=== PATIENT | male | born 1935 | race Asian ===

== ENCOUNTER 2021-01-11 09:14 | Emergency (ER) | payer OTHER ==
[2021-01-11 09:29] VITALS: TEMP 100.3; BMI 55.7
[2021-01-11] MEDS ORDERED: VANCOMYCIN 1 GM in D5W (PRE-DOCKED) 1,000 MG/250 ML IVPB ONE (10:02)
[2021-01-11] MEDS ORDERED: PIPERACILLIN/TAZOB 3.375 GM 3.375 GM in DEXTROSE 5%-WATER - 50 ML IVPB ONE (10:02)
[2021-01-11 10:17] LABS: BASO % 0.2 % (0-2.0); HEMATOCRIT 26.9 % (35.4-49); HEMOGLOBIN 8.5 GM/dL (11.7-16.9); LYMPH % 1.4 % (8-40); MCH 33.6 pg (25.7-33.7); MCHC 31.5 g/dl (32.0-35.9); MEAN CELL VOLUME 106.8 fl (80-96); MEAN PLT VOLUME 9.1 fl (7.5-11.1); MONO % 7.1 % (3.8-10.2); NEUT % 91.3 % (42.8-82.8); PLATELET COUNT 37 10^3/uL (134-434); RBC 2.52 M/mm3 (4.00-5.60); RDW 19.1 % (11.9-15.9); VENOUS PCO2 43.2 mmHg (38-52); VENOUS PH 7.235 (7.310-7.410); WHITE BLOOD COUNT 25.2 K/mm3 (4.0-10.0)
[2021-01-11 10:28] LABS: INR 1.26 (0.83-1.09); PROTHROMBIN TIME (PATIENT) 15.4 SEC (9.7-13.0)
[2021-01-11 10:31] LABS: ACTIVATED PTT 24.5 SECONDS (25.2-36.5)
[2021-01-11 10:38] LABS: ALBUMIN 2.4 g/dl (3.4-5.0); BLOOD UREA NITROGEN 61.6 mg/dL (7-18)
[2021-01-11] MEDS ORDERED: VANCOMYCIN 1 GRAM (PRE-DOCKED) 1,000 MG/250 ML BAG IVPB ONE (10:39)
[2021-01-11] MEDS ORDERED: PIPERACILLIN/TAZOB 3.375 GM 3.375 GM/50 ML BAG IVPB ONE (10:40)
[2021-01-11 10:42] LABS: BILIRUBIN,TOTAL 0.4 mg/dL (0.2-1); TOT PROT 6.3 g/dl (6.4-8.2)
[2021-01-11 10:44] LABS: ANISOCYTOSIS 1+; MACROCYTOSIS 1+; PLATELET ESTIMATE DECREASED
[2021-01-11 11:02] LABS: LACTIC ACID 10.3 mmol/L (0.4-2.0)
[2021-01-11] MEDS ORDERED: LACTATED RINGERS SOLUTION 1000 ML INFUS.BAG IV ONE (11:34)
[2021-01-11] MEDS ORDERED: ACETAMINOPHEN 1000 MG/100 ML VIAL (NON FORMULARY) IVPB ONE (14:33)
[2021-01-11] MEDS ORDERED: ACETAMINOPHEN INJECTION 100 ML IVPB ONE (14:38)
[2021-01-11 15:14] VITALS: BP 120/63; PULSE 105
== END 2021-01-11 15:00 | disposition short-term general hospital (02) ==
LOC: JER 09:14
PROC: 3E03329 Introduction of Other Anti-infective into Peripheral Vein, Percutaneous Approach (ICD-10-PCS; principal; 2021-01-11)
PROC: 3E033NZ Introduction of Analgesics, Hypnotics, Sedatives into Peripheral Vein, Percutaneous Approach (ICD-10-PCS; 2021-01-11)
DX: A41.9 Sepsis, unspecified organism (principal)
CPT/HCPCS: 36415; 71045-TC-FY; 71250-TC; 80053; 82010; 82550; 82803; 82962; 83605; 83735; 83880; 84484; 85025; 85610; 85730; 87040; 99291; C9803; J0131; U0003; U0005